=== PATIENT | male | born 1935 | race African-American/Black ===

== ENCOUNTER 2021-01-09 12:24 | Inpatient (IN) | payer OTHER ==
[~2021-01-09] VITALS: Ht 167.6 cm; Wt 64.0 kg
[2021-01-09] MEDS ORDERED: MORPHINE SULFATE 4 MG/ML CPJ (NOT FOR IM USE) IV STA (13:07)
[2021-01-09] MEDS ORDERED: ONDANSETRON HCL 4MG/2ML INJ IV STA (13:07)
[2021-01-09 13:32] LABS: BASOPHILS % 0.6 % (0.0-2.0); EOSINOPHILS % 1.2 % (0.0-5.0); HEMATOCRIT. 43.6 % (42.0-52.0); HEMOGLOBIN. 13.9 g/dL (14.0-18.0); LYMPHOCYTES % 9.3 % (20.0-50.0); MEAN CORPUSCULAR HEMOGLOBIN 29.4 pg (28.0-32.0); MEAN CORPUSCULAR VOLUME 92.4 fL (80.0-94.0); MEAN PLATELET VOLUME 8.3 fl (7.4-10.4); NEUTROPHILS % 83.9 % (40.0-76.0); PLATELET 252 x1000/uL (130-400); RED BLOOD CELL COUNT 4.72 mill/uL (4.7-6.1); RED CELL DISTRIBUTION WIDTH 14.8 % (11.6-14.6)
[2021-01-09 13:37] LABS: CHLORIDE 115 mEq/L (98-107)
[2021-01-09 13:41] LABS: INR 0.9; PROTHROMBIN TIME 10.1 sec (9.6-11.0)
[2021-01-09] MEDS ORDERED: MORPHINE SULFATE 4 MG/ML CPJ (NOT FOR IM USE) IV ONE (17:45)
[2021-01-09 19:22] LABS: CLARITY URINE CLEAR (CLEAR); COLOR URINE YELLOW (YELLOW); KETONES URINE TRACE (NEGATIVE); LEUKOCYTE ESTERASE URINE NEGATIVE (NEGATIVE); NITRITE URINE NEGATIVE (NEGATIVE); OCCULT BLOOD URINE TRACE (NEGATIVE); PH URINE 5.5 (4.5-8.0); PROTEIN URINE TRACE (NEGATIVE); SPECIFIC GRAVITY URINE 1.039 (1.005-1.030); UROBILINOGEN URINE 0.2 E.U./dL (0.2-1.0)
[2021-01-09] MEDS ORDERED: IPRATROPIUM/ALBUTEROL 0.5-3(2.5)MG/3ML NEB NEB PRN (21:30)
[2021-01-09] MEDS ORDERED: ACETAMINOPHEN 325MG TABLET PO PRN ×2 (21:30)
[2021-01-09] MEDS ORDERED: CLONIDINE 0.1MG TABLET PO PRN (21:30)
[2021-01-09] MEDS ORDERED: GUAIFENESIN 200MG/10ML SUGAR FREE UDC PO PRN (21:30)
[2021-01-09] MEDS ORDERED: NITROGLYCERIN 0.4MG TABLET SL SL PRN (21:30)
[2021-01-09] MEDS ORDERED: ONDANSETRON HCL 4MG/2ML INJ IV PRN (21:30)
[2021-01-09] MEDS ORDERED: ZOLPIDEM TARTRATE 5MG TABLET PO PRN (21:30)
[2021-01-09] MEDS ORDERED: DOCUSATE SODIUM 100MG CAPSULE PO PRN (21:30)
[2021-01-09] MEDS ORDERED: DEXT 5%/LACTATED RINGERS 1,000 ML IV SCH (22:00)
[2021-01-09] MEDS: ENOXAPARIN 40MG/0.4ML SYR SUBCUT SCH (22:10)
[2021-01-09] MEDS ORDERED: IOHEXOL-300 100 ML BOTTLE ONE (22:16)
[2021-01-10] VITALS (11 sets, daily range): BP systolic 79–104; BP diastolic 21–65
[2021-01-10 00:18] LABS: VITAMIN B12 SERUM 533 pg/mL (211-911)
[2021-01-10 05:06] LABS: BASOPHILS % 0.8 % (0.0-2.0); EOSINOPHILS % 1.2 % (0.0-5.0); HEMATOCRIT. 41.7 % (42.0-52.0); HEMOGLOBIN. 13.5 g/dL (14.0-18.0); LYMPHOCYTES % 10.3 % (20.0-50.0); MEAN CORPUSCULAR HEMOGLOBIN 29.3 pg (28.0-32.0); MEAN CORPUSCULAR VOLUME 90.2 fL (80.0-94.0); MEAN PLATELET VOLUME 8.2 fl (7.4-10.4); MONOCYTES % 7.1 % (2.0-8.0); NEUTROPHILS % 80.6 % (40.0-76.0); PLATELET 267 x1000/uL (130-400); RED BLOOD CELL COUNT 4.62 mill/uL (4.7-6.1); RED CELL DISTRIBUTION WIDTH 14.4 % (11.6-14.6)
[2021-01-10 05:08] LABS: CHLORIDE 113 mEq/L (98-107)
[2021-01-10 05:20] LABS: PHOSPHORUS 2.6 mg/dL (2.5-4.9)
[2021-01-10] MEDS ORDERED: HYDROCODONE/ACETAMINOPHEN 5/325MG TABLET PO PRN ×2 (08:00)
[2021-01-10] MEDS ORDERED: ONDANSETRON HCL 4MG/2ML INJ IV PRN ×3 (08:00→18:51)
[2021-01-10] MEDS ORDERED: BUPIVACAINE HCL/PF 0.5% (5MG/ML) 10ML ONE (08:09)
[2021-01-10] MEDS ORDERED: SKIN ADHESIVE 0.7 GM EA TOP ONE (08:09)
[2021-01-10] MEDS ORDERED: FAMOTIDINE 20MG TABLET PO SCH (09:00)
[2021-01-10 09:34] LABS: *AMPHETAMINES SCREEN URINE NEGATIVE (NEGATIVE); *BARBITURATES SCREEN URINE NEGATIVE (NEGATIVE); *BENZODIAZEPINES SCREEN URINE NEGATIVE (NEGATIVE); *COCAINE SCREEN URINE NEGATIVE (NEGATIVE); METHADONE URINE SCREEN NEGATIVE (NEGATIVE)
[2021-01-10 09:35] LABS: CANNABINOID URINE SCREEN NEGATIVE (NEGATIVE); OPIATES URINE SCREEN PRESUMTIVE POSITIVE (NEGATIVE); PHENCYCLIDINE URINE SCREEN NEGATIVE (NEGATIVE)
[2021-01-10] MEDS ORDERED: MEPERIDINE HCL/PF 25MG/ML CPJ IV PRN ×2 (10:00→18:50)
[2021-01-10] MEDS ORDERED: HYDROMORPHONE HCL/PF 2MG/ML CPJ IV PRN ×2 (10:00→18:48)
[2021-01-10] MEDS ORDERED: LABETALOL 5MG/ML SYR 20 MG/4 ML SYRINGE IV PRN ×2 (10:00→18:49)
[2021-01-10 16:01] LABS: HEMATOCRIT. 38.7 % (42.0-52.0); HEMOGLOBIN. 12.8 g/dL (14.0-18.0); MEAN CORPUSCULAR VOLUME 90.8 fL (80.0-94.0); MEAN PLATELET VOLUME 8.2 fl (7.4-10.4); PLATELET 255 x1000/uL (130-400); RED BLOOD CELL COUNT 4.26 mill/uL (4.7-6.1); RED CELL DISTRIBUTION WIDTH 14.3 % (11.6-14.6)
[2021-01-10 18:41] LABS: PLATELET ESTIMATE NORMAL
[2021-01-10] MEDS: ENOXAPARIN 40MG/0.4ML SYR SUBCUT SCH (21:00)
[2021-01-10] MEDS: METOPROLOL TARTRATE 25MG TABLET PO SCH (21:00)
[2021-01-10] MEDS: DEXT 5%/0.45% NACL KCL 20MEQ/L 1,000 ML IV SCH (21:10)
[2021-01-10] MEDS ORDERED: LORAZEPAM 2MG/ML CPJ IV PRN (23:00)
[2021-01-10] MEDS ORDERED: ACETAMINOPHEN 650MG SUPP PR PRN ×2 (23:00)
[2021-01-10] MEDS ORDERED: SODIUM CHLORIDE 0.9% 500 ML IV ONE (23:00)
[2021-01-11] VITALS (31 sets, daily range): BP systolic 78–160; BP diastolic 39–112
[2021-01-11] MEDS: DEXT 5%/0.45% NACL KCL 20MEQ/L 1,000 ML IV SCH ×3 (04:07→20:16)
[2021-01-11] MEDS: KETOROLAC 15MG/ML VIAL IV PRN ×2 (04:44→15:27)
[2021-01-11] MEDS: METOPROLOL TARTRATE 25MG TABLET PO SCH ×3 (08:38→21:32)
[2021-01-11] MEDS ORDERED: NALOXONE HCL 0.4MG/ML VIAL IV PRN (11:00)
[2021-01-11] MEDS ORDERED: SODIUM CHLORIDE 0.9% 500 ML IV ONE (11:00)
[2021-01-11] MEDS: MORPHINE SULFATE 2 MG/ML CPJ (NOT FOR IM USE) IV PRN ×3 (12:27→21:56)
[2021-01-11] MEDS: ONDANSETRON HCL 4MG/2ML INJ IV PRN ×3 (12:28→21:53)
[2021-01-11] MEDS: ENOXAPARIN 40MG/0.4ML SYR SUBCUT SCH (21:32)
[2021-01-12] VITALS (16 sets, daily range): BP systolic 98–163; BP diastolic 48–86
[2021-01-12] MEDS: DEXT 5%/0.45% NACL KCL 20MEQ/L 1,000 ML IV SCH ×3 (04:04→20:02)
[2021-01-12] MEDS: MORPHINE SULFATE 4 MG/ML CPJ (NOT FOR IM USE) IV PRN ×3 (08:49→20:03)
[2021-01-12] MEDS: ONDANSETRON HCL 4MG/2ML INJ IV PRN ×2 (08:49→20:24)
[2021-01-12] MEDS ORDERED: LABETALOL 5MG/ML SYR 20 MG/4 ML SYRINGE IV PRN ×2 (10:30→10:45)
[2021-01-12] MEDS: KETOROLAC 15MG/ML VIAL IV PRN (12:01)
[2021-01-12] MEDS: ENOXAPARIN 40MG/0.4ML SYR SUBCUT SCH (20:03)
[2021-01-13] VITALS (11 sets, daily range): BP systolic 102–127; BP diastolic 49–66
[2021-01-13] MEDS: ONDANSETRON HCL 4MG/2ML INJ IV PRN (04:07)
[2021-01-13] MEDS: DEXT 5%/0.45% NACL KCL 20MEQ/L 1,000 ML IV SCH ×2 (04:07→12:44)
[2021-01-13] MEDS: MORPHINE SULFATE 4 MG/ML CPJ (NOT FOR IM USE) IV PRN ×3 (04:08→21:06)
[2021-01-13] MEDS ORDERED: MORPHINE SULFATE 2 MG/ML CPJ (NOT FOR IM USE) IV NR (09:45)
[2021-01-13 10:21] LABS: CHLORIDE 117 mEq/L (98-107)
[2021-01-13 14:33] LABS: HEMATOCRIT. 24.5 % (42.0-52.0); HEMOGLOBIN. 7.9 g/dL (14.0-18.0); MEAN CORPUSCULAR HEMOGLOBIN 29.5 pg (28.0-32.0); MEAN CORPUSCULAR VOLUME 91.7 fL (80.0-94.0); MEAN PLATELET VOLUME 8.8 fl (7.4-10.4); PLATELET 197 x1000/uL (130-400); RED BLOOD CELL COUNT 2.67 mill/uL (4.7-6.1); RED CELL DISTRIBUTION WIDTH 14.2 % (11.6-14.6)
[2021-01-13] MEDS: DEXT 5%/0.45% NACL 1000ML 1,000 ML IV SCH (18:43)
[2021-01-13] MEDS: ENOXAPARIN 40MG/0.4ML SYR SUBCUT SCH (21:04)
[2021-01-14] VITALS (17 sets, daily range): BP systolic 94–132; BP diastolic 44–65
[2021-01-14] MEDS: MORPHINE SULFATE 4 MG/ML CPJ (NOT FOR IM USE) IV PRN ×2 (03:33→12:53)
[2021-01-14] MEDS: DEXT 5%/0.45% NACL 1000ML 1,000 ML IV SCH ×2 (06:20→21:12)
[2021-01-14 06:55] LABS: HEMATOCRIT. 22.4 % (42.0-52.0); HEMOGLOBIN. 7.1 g/dL (14.0-18.0); MEAN CORPUSCULAR HEMOGLOBIN 30.3 pg (28.0-32.0); MEAN CORPUSCULAR VOLUME 95.5 fL (80.0-94.0); MEAN PLATELET VOLUME 8.3 fl (7.4-10.4); PLATELET 178 x1000/uL (130-400); RED BLOOD CELL COUNT 2.35 mill/uL (4.7-6.1); RED CELL DISTRIBUTION WIDTH 14.8 % (11.6-14.6)
[2021-01-14 20:20] LABS: PLATELET ESTIMATE NORMAL
[2021-01-14] MEDS: ENOXAPARIN 40MG/0.4ML SYR SUBCUT SCH (21:00)
[2021-01-14 21:24] LABS: PLATELET ESTIMATE NORMAL
[2021-01-15] VITALS (12 sets, daily range): BP systolic 116–144; BP diastolic 55–74
[2021-01-15] MEDS: DEXT 5%/0.45% NACL 1000ML 1,000 ML IV SCH ×2 (14:56→23:58)
[2021-01-15] MEDS: ENOXAPARIN 40MG/0.4ML SYR SUBCUT SCH (21:17)
[2021-01-16] VITALS (9 sets, daily range): BP systolic 97–140; BP diastolic 54–68
[2021-01-16 07:18] LABS: HEMATOCRIT. 27.5 % (42.0-52.0); HEMOGLOBIN. 9.3 g/dL (14.0-18.0); MEAN CORPUSCULAR HEMOGLOBIN 30.7 pg (28.0-32.0); MEAN CORPUSCULAR VOLUME 90.6 fL (80.0-94.0); MEAN PLATELET VOLUME 8.5 fl (7.4-10.4); PLATELET 240 x1000/uL (130-400); RED BLOOD CELL COUNT 3.04 mill/uL (4.7-6.1); RED CELL DISTRIBUTION WIDTH 13.5 % (11.6-14.6)
[2021-01-16 07:30] LABS: CHLORIDE 109 mEq/L (98-107)
[2021-01-16 07:42] LABS: PHOSPHORUS 1.8 mg/dL (2.5-4.9)
[2021-01-16] MEDS: DEXT 5%/0.45% NACL 1000ML 1,000 ML IV SCH (18:29)
[2021-01-16 20:30] LABS: PLATELET ESTIMATE NORMAL
[2021-01-16] MEDS: ENOXAPARIN 40MG/0.4ML SYR SUBCUT SCH (21:34)
[2021-01-17] VITALS (14 sets, daily range): BP systolic 112–125; BP diastolic 51–79
[2021-01-17] MEDS: DEXT 5%/0.45% NACL 1000ML 1,000 ML IV SCH ×2 (01:30→15:31)
[2021-01-17] MEDS: MAGNESIUM/ALUMINUM HYDROXIDE/SIMETHICONE 30ML UDC PO PRN (10:27)
[2021-01-17] MEDS: ENOXAPARIN 40MG/0.4ML SYR SUBCUT SCH ×2 (20:47→20:48)
[2021-01-18 01:57] VITALS: BP 118/64
[2021-01-18 04:02] VITALS: BP 126/69
[2021-01-18] MEDS: DEXT 5%/0.45% NACL 1000ML 1,000 ML IV SCH ×2 (04:38→17:30)
[2021-01-18 08:00] VITALS: BP 123/64
[2021-01-18 12:00] VITALS: BP 123/68
[2021-01-18 16:00] VITALS: BP 110/62
[2021-01-18 20:00] VITALS: BP 113/65
[2021-01-18] MEDS: ENOXAPARIN 40MG/0.4ML SYR SUBCUT SCH (21:18)
[2021-01-19] VITALS: BP 124/67
[2021-01-19 04:00] VITALS: BP 134/65
[2021-01-19] MEDS: DEXT 5%/0.45% NACL 1000ML 1,000 ML IV SCH ×2 (06:43→21:41)
[2021-01-19 08:00] VITALS: BP 131/66
[2021-01-19 12:00] VITALS: BP 116/65
[2021-01-19 16:00] VITALS: BP 102/48
[2021-01-19 20:00] VITALS: BP 110/59
[2021-01-19] MEDS: ENOXAPARIN 40MG/0.4ML SYR SUBCUT SCH (21:41)
[2021-01-20] VITALS (7 sets, daily range): BP systolic 88–116; BP diastolic 41–63
[2021-01-20] MEDS: DEXT 5%/0.45% NACL 1000ML 1,000 ML IV SCH (09:52)
[2021-01-20] MEDS: ENOXAPARIN 40MG/0.4ML SYR SUBCUT SCH (21:58)
[2021-01-21] VITALS: BP 105/54
[2021-01-21 04:00] VITALS: BP 122/68
[2021-01-21 08:00] VITALS: BP 132/65
[2021-01-21] MEDS: MAGNESIUM/ALUMINUM HYDROXIDE/SIMETHICONE 30ML UDC PO PRN (11:12)
[2021-01-21 12:00] VITALS: BP 122/64
[2021-01-21 16:00] VITALS: BP 134/72
[2021-01-21 20:00] VITALS: BP 134/68
[2021-01-21] MEDS: ENOXAPARIN 40MG/0.4ML SYR SUBCUT SCH (20:16)
[2021-01-22] VITALS: BP 124/69
[2021-01-22] MEDS: DEXT 5%/0.45% NACL 1000ML 1,000 ML IV SCH ×2 (01:53→14:50)
[2021-01-22 04:00] VITALS: BP 125/70
[2021-01-22 08:00] VITALS: BP 117/65
[2021-01-22 12:00] VITALS: BP 133/69
[2021-01-22 16:00] VITALS: BP 119/65
[2021-01-22] MEDS: METOCLOPRAMIDE HCL 5MG TABLET PO SCH (19:20)
[2021-01-22 20:00] VITALS: BP 125/60
[2021-01-22] MEDS: ENOXAPARIN 40MG/0.4ML SYR SUBCUT SCH (21:21)
[2021-01-23] VITALS: BP 120/64
[2021-01-23 04:00] VITALS: BP 131/64
[2021-01-23] MEDS: DEXT 5%/0.45% NACL 1000ML 1,000 ML IV SCH (04:10)
[2021-01-23 06:45] LABS: BASOPHILS % 0.7 % (0.0-2.0); EOSINOPHILS % 2.2 % (0.0-5.0); HEMATOCRIT. 28.8 % (42.0-52.0); HEMOGLOBIN. 9.7 g/dL (14.0-18.0); LYMPHOCYTES % 8.8 % (20.0-50.0); MEAN CORPUSCULAR HEMOGLOBIN 30.8 pg (28.0-32.0); MEAN CORPUSCULAR VOLUME 91.3 fL (80.0-94.0); NEUTROPHILS % 82.3 % (40.0-76.0); PLATELET 413 x1000/uL (130-400); RED BLOOD CELL COUNT 3.15 mill/uL (4.7-6.1); RED CELL DISTRIBUTION WIDTH 13.8 % (11.6-14.6)
[2021-01-23 06:57] LABS: CHLORIDE 107 mEq/L (98-107)
[2021-01-23] MEDS: METOCLOPRAMIDE HCL 5MG TABLET PO SCH ×3 (07:02→18:38)
[2021-01-23 08:00] VITALS: BP 105/59
[2021-01-23 12:00] VITALS: BP 135/71
[2021-01-23] MEDS: SUCRALFATE 1 G/10 ML UDC PO SCH ×3 (13:27→21:38)
[2021-01-23 16:00] VITALS: BP 117/64
[2021-01-23 20:00] VITALS: BP 118/59
[2021-01-23] MEDS: ENOXAPARIN 40MG/0.4ML SYR SUBCUT SCH (21:38)
[2021-01-24] VITALS: BP 120/59
[2021-01-24 04:00] VITALS: BP 122/66
[2021-01-24] MEDS: DEXT 5%/0.45% NACL 1000ML 1,000 ML IV SCH ×2 (06:39→18:00)
[2021-01-24] MEDS: SUCRALFATE 1 G/10 ML UDC PO SCH ×4 (06:40→20:01)
[2021-01-24] MEDS: METOCLOPRAMIDE HCL 5MG TABLET PO SCH ×3 (06:40→17:59)
[2021-01-24 08:00] VITALS: BP_SYST 141; BP_SYST 144; BP_DIAS 66; BP_DIAS 68
[2021-01-24 16:00] VITALS: BP 129/73
[2021-01-24 20:00] VITALS: BP 134/56
[2021-01-25 02:07] VITALS: BP 145/70
[2021-01-25 04:00] VITALS: BP 144/71
[2021-01-25 04:40] VITALS: BP 144/71
[2021-01-25] MEDS: DEXT 5%/0.45% NACL 1000ML 1,000 ML IV SCH ×2 (05:35→21:39)
[2021-01-25] MEDS: METOCLOPRAMIDE HCL 5MG TABLET PO SCH ×2 (06:36→12:09)
[2021-01-25] MEDS: SUCRALFATE 1 G/10 ML UDC PO SCH ×4 (06:36→21:39)
[2021-01-25 10:45] LABS: BASOPHILS % 0.8 % (0.0-2.0); EOSINOPHILS % 2.3 % (0.0-5.0); HEMATOCRIT. 30.7 % (42.0-52.0); HEMOGLOBIN. 10.2 g/dL (14.0-18.0); LYMPHOCYTES % 11.2 % (20.0-50.0); MEAN CORPUSCULAR HEMOGLOBIN 30.7 pg (28.0-32.0); MEAN CORPUSCULAR VOLUME 91.9 fL (80.0-94.0); MEAN PLATELET VOLUME 7.7 fl (7.4-10.4); MONOCYTES % 8.2 % (2.0-8.0); NEUTROPHILS % 77.5 % (40.0-76.0); PLATELET 445 x1000/uL (130-400); RED BLOOD CELL COUNT 3.34 mill/uL (4.7-6.1); RED CELL DISTRIBUTION WIDTH 13.8 % (11.6-14.6)
[2021-01-25 10:54] LABS: CHLORIDE 107 mEq/L (98-107)
[2021-01-25] MEDS ORDERED: DEXTROSE 50% WATER 50ML SYRINGE IV ONE ×2 (11:10→11:15)
[2021-01-25] MEDS ORDERED: DEXTROSE 50% WATER 50ML SYRINGE IV NR (11:45)
[2021-01-25] MEDS ORDERED: PROPOFOL 200MG/20ML VIAL IV ONE (14:21)
[2021-01-25] MEDS ORDERED: PHENYLEPHRINE HCL 10 MG/ML 1ML (IV VIAL) IV ONE (14:22)
[2021-01-25] MEDS ORDERED: LIDOCAINE HCL/PF 1% 10 MG/ML 5ML VIAL ONE (14:27)
[2021-01-25] MEDS: METOCLOPRAMIDE HCL 10MG/2ML VIAL IV SCH (18:13)
[2021-01-25 20:00] VITALS: BP 124/76
[2021-01-25] MEDS: ENOXAPARIN 40MG/0.4ML SYR SUBCUT SCH (21:39)
[2021-01-25] MEDS: PANTOPRAZOLE SODIUM 40 MG/VIAL IV SCH (21:39)
[2021-01-26] VITALS: BP 145/79
[2021-01-26 04:00] VITALS: BP 123/61
[2021-01-26 06:07] LABS: PHOSPHORUS 2.4 mg/dL (2.5-4.9)
[2021-01-26] MEDS: SUCRALFATE 1 G/10 ML UDC PO SCH ×4 (06:43→22:05)
[2021-01-26 08:00] VITALS: BP 130/75
[2021-01-26] MEDS: DEXT 5%/0.45% NACL 1000ML 1,000 ML IV SCH ×2 (09:14→22:06)
[2021-01-26] MEDS: PANTOPRAZOLE SODIUM 40 MG/VIAL IV SCH ×2 (09:14→22:05)
[2021-01-26] MEDS: METOCLOPRAMIDE HCL 10MG/2ML VIAL IV SCH ×3 (09:14→17:39)
[2021-01-26 12:00] VITALS: BP 137/65
[2021-01-26] MEDS ORDERED: POTASSIUM-SODIUM PHOSPHATE POWDER PACKET PO NR (15:00)
[2021-01-26 16:00] VITALS: BP 113/64
[2021-01-26 20:00] VITALS: BP 136/70
[2021-01-26] MEDS: ENOXAPARIN 40MG/0.4ML SYR SUBCUT SCH (22:05)
[2021-01-27] VITALS: BP 130/75
[2021-01-27 04:00] VITALS: BP 135/80
[2021-01-27 06:07] LABS: PHOSPHORUS 2.8 mg/dL (2.5-4.9)
[2021-01-27] MEDS: SUCRALFATE 1 G/10 ML UDC PO SCH (06:11)
[2021-01-27 07:58] VITALS: BP 125/61
[2021-01-27] MEDS: METOCLOPRAMIDE HCL 10MG/2ML VIAL IV SCH (08:27)
[2021-01-27] MEDS: PANTOPRAZOLE SODIUM 40 MG/VIAL IV SCH (08:27)
[2021-01-27 09:22] VITALS: BP 125/61
== END 2021-01-27 10:45 | disposition home or self-care (01) | DRG 350 ==
LOC: ER 13:41 → EDBEDREQ 20:39 → EDBEDREQTM 20:39 → MICUSO 21:41 → 3WST 01-10 19:35 → 6EST 01-18 06:02
PROVIDERS: ADMIT Internal Medicine; ATTEND Internal Medicine
PROC: 0YU50JZ Supplement Right Inguinal Region with Synthetic Substitute, Open Approach (ICD-10-PCS; principal; 2021-01-10)
PROC: 30233N1 Transfusion of Nonautologous Red Blood Cells into Peripheral Vein, Percutaneous Approach (ICD-10-PCS; 2021-01-14)
PROC: 0DB98ZX Excision of Duodenum, Via Natural or Artificial Opening Endoscopic, Diagnostic (ICD-10-PCS; 2021-01-25)
PROC: 0DB78ZX Excision of Stomach, Pylorus, Via Natural or Artificial Opening Endoscopic, Diagnostic (ICD-10-PCS; 2021-01-25)
DX: K40.30 Unilateral inguinal hernia, with obstruction, without gangrene, not specified as recurrent (principal); N17.0 Acute kidney failure with tubular necrosis; D62 Acute posthemorrhagic anemia; K22.10 Ulcer of esophagus without bleeding; I10 Essential (primary) hypertension; J44.9 Chronic obstructive pulmonary disease, unspecified; R47.02 Dysphasia; Z20.822 Contact with and (suspected) exposure to COVID-19; K59.00 Constipation, unspecified; R74.01 Elevation of levels of liver transaminase levels; K80.20 Calculus of gallbladder without cholecystitis without obstruction; K44.9 Diaphragmatic hernia without obstruction or gangrene; K29.70 Gastritis, unspecified, without bleeding; K29.80 Duodenitis without bleeding; E83.39 Other disorders of phosphorus metabolism; Z99.81 Dependence on supplemental oxygen; Z79.899 Other long term (current) drug therapy; Z87.19 Personal history of other diseases of the digestive system
CPT/HCPCS: 36415; 74018; 74177; 74181; 80048; 80053; 80061; 80076; 80305; 81003; 82607; 82746; 82962; 83036; 83540; 83550; 83605; 83735; 84100; 85025; 86850; 86900; 86920; 87426; 88302; 88305; 88312; 88313; 92610; 93970; 97110; 97116; 97162; 97165; 97530; 97535; 99285; C1781; C1893; C9113; J1100; J1650; J1885; J2250; J2270; J2370; J2405; J2704; J2710; J2765; J3010; J3490; J7040; J8597; P9016; Q9967